=== PATIENT | male | born 1980 | race Caucasian/White ===

== ENCOUNTER 2016-07-03 23:49 | Emergency (ER) | payer OTHER ==
[~2016-07-03] VITALS: Ht 182.9 cm; Wt 66.5 kg
[2016-07-04] MEDS ORDERED: PEN-VEE K,VEET500 MG PO (00:56)
[2016-07-04] MEDS ORDERED: ULTRAM50 MG PO (00:56)
[2016-07-04 01:16] VITALS: BP 124/71
== END 2016-07-04 01:16 | disposition home or self-care (01) ==
LOC: EXP 23:49 → EME 23:49 → EXP 07-04 01:16
DX: K02.9 Dental caries, unspecified (principal); Z88.5 Allergy status to narcotic agent; F17.200 Nicotine dependence, unspecified, uncomplicated
CPT/HCPCS: 99281; 99283